=== PATIENT | male | born 1945 | race Caucasian/White ===

== ENCOUNTER 2017-05-06 20:58 | Inpatient (IN) | payer OTHER, MEDICAID ==
[~2017-05-06] VITALS: Ht 175.3 cm; Wt 65.8 kg
[2017-05-06 21:51] LABS: BASOPHIL % 0.4 % (0-2); PLATELET COUNT 284 x10^3mcL (130-400)
[2017-05-06 22:01] LABS: CALCIUM 8.5 mg/dL (8.5-10.1); CARBON DIOXIDE 28.8 mmol/L (21-32); CHLORIDE SERUM 106 mmol/L (98-107); GFR1 > 60 mL/min; GLUCOSE SERUM 101 mg/dL (74-106); POTASSIUM SERUM 3.9 mmol/L (3.5-5.1); SODIUM SERUM 137 mmol/L (136-145)
[2017-05-06 22:05] LABS: ALKALINE PHOSPHATASE 118 U/L (46-116); ALT/SGPT 16 U/L (16-63); AST/SGOT 12 U/L (15-37); BILIRUBIN TOTAL 0.2 mg/dL (0.20-1.00); TOTAL PROTEIN, SERUM 7.2 g/dL (6.4-8.2)
[2017-05-06 22:07] LABS: ALBUMIN 3.1 g/dL (3.4-5.0)
[2017-05-06 22:21] LABS: UA SPECIFIC GRAVITY 1.015 (1.005-1.035); microscopic required? YES; urine erythrocyte TRACE (NEGATIVE)
[2017-05-07 00:20] VITALS: BP 146/81
[2017-05-07 05:48] VITALS: BP 126/79
[2017-05-07 07:38] LABS: T3 TOTAL 1.5 ng/mL
[2017-05-07 08:00] VITALS: BP 124/63
[2017-05-07 08:07] LABS: PHOSPHOROUS 3.7 mg/dL (2.5-4.9)
[2017-05-07 08:16] LABS: FREE T4 1.22 ng/dL (0.76-1.46); T4(THYROXINE) 10.3 ug/dL (4.7-13.3)
[2017-05-07 08:37] LABS: CHOLESTEROL/HDL RATIO 6.3
[2017-05-07 12:50] VITALS: BP 123/83
[2017-05-07 17:53] VITALS: BP 129/90
[2017-05-07 21:44] VITALS: BP 136/67
[2017-05-08 06:15] VITALS: BP 159/89
[2017-05-08 06:18] LABS: CALCIUM 8.3 mg/dL (8.5-10.1); CARBON DIOXIDE 22.8 mmol/L (21-32); CHLORIDE SERUM 110 mmol/L (98-107); CREATININE SERUM 0.8 mg/dL (0.7-1.3); GFR1 > 60 mL/min; GLUCOSE SERUM 95 mg/dL (74-106); MAGNESIUM 2.1 mg/dL (1.8-2.4); PHOSPHOROUS 3.1 mg/dL (2.5-4.9); SODIUM SERUM 139 mmol/L (136-145)
[2017-05-08 06:39] LABS: BASOPHIL % 0.5 % (0-2); PLATELET COUNT 266 x10^3mcL (130-400)
[2017-05-08 06:40] LABS: RED CELL DISTRIBUTION WIDTH 15.8 % (11.5-14.5)
[2017-05-08 08:30] VITALS: BP 128/81
[2017-05-08 12:27] VITALS: BP 126/62
[2017-05-08 16:50] VITALS: BP 149/74
[2017-05-08 21:13] VITALS: BP 148/78
[2017-05-09 05:23] VITALS: BP 130/70
[2017-05-09 10:13] VITALS: BP 135/74
[2017-05-09 13:41] VITALS: BP 135/70
[2017-05-09 14:58] VITALS: BP 135/70
[2017-05-09] MEDS ORDERED: BD LACTINEX1.4 MG PO (16:20)
[2017-05-09] MEDS ORDERED: LEVAQUIN750 MG PO (16:20)
== END 2017-05-09 16:45 | disposition home or self-care (01) | DRG 690 ==
LOC: ED 20:58 → DU 23:21 → MU 23:21 → DU 05-07 00:26 → MU 05-09 09:49
PROVIDERS: Emergency Medicine; Family Medicine; ADMIT Family Medicine
DX: N39.0 Urinary tract infection, site not specified (principal); E44.0 Moderate protein-calorie malnutrition; B96.1 Klebsiella pneumoniae [K. pneumoniae] as the cause of diseases classified elsewhere; E78.5 Hyperlipidemia, unspecified; E03.9 Hypothyroidism, unspecified; G80.9 Cerebral palsy, unspecified; Z87.820 Personal history of traumatic brain injury; Z16.11 Resistance to penicillins; Z68.21 Body mass index [BMI] 21.0-21.9, adult
CPT/HCPCS: 83880; 84439; 92610-GN; J0696; J7030; Q0092

== ENCOUNTER 2017-11-15 09:29 | Emergency (ER) | payer OTHER, MEDICAID ==
[~2017-11-15] VITALS: Ht 175.3 cm; Wt 66.7 kg
[~2017-11-15 09:29] MED LIST: BD LACTINEX1.4 MG PO; LEVAQUIN750 MG PO
[2017-11-15 09:50] VITALS: BP 137/75; Ht 175.3 cm; Wt 66.7 kg
[2017-11-15 11:31] LABS: UA SPECIFIC GRAVITY 1.015 (1.005-1.035); microscopic required? YES; urine erythrocyte TRACE (NEGATIVE)
== END 2017-11-15 11:02 | disposition home or self-care (01) ==
LOC: ED 09:29
PROVIDERS: Specialist
DX: N39.0 Urinary tract infection, site not specified (principal)

== ENCOUNTER 2018-01-22 11:01 | Emergency (ER) | payer OTHER, MEDICAID ==
[~2018-01-22] VITALS: Ht 175.3 cm; Wt 65.8 kg
[2018-01-22 11:10] VITALS: Ht 175.3 cm; Wt 65.8 kg
[2018-01-22 12:52] VITALS: BP 146/74
== END 2018-01-22 12:52 | disposition home or self-care (01) ==
LOC: ED 11:01
DX: N39.0 Urinary tract infection, site not specified (principal)

== ENCOUNTER 2019-04-04 08:43 | Emergency (ER) | payer OTHER, MEDICAID ==
[~2019-04-04] VITALS: Ht 172.7 cm; Wt 66.7 kg
[2019-04-04 08:58] VITALS: Ht 172.7 cm; Wt 66.7 kg
[2019-04-04 09:38] LABS: BASOPHIL % 0.3 % (0-2); PLATELET COUNT 256 x10^3mcL (130-400)
[2019-04-04 09:40] LABS: RED CELL DISTRIBUTION WIDTH 15.1 % (11.5-14.5)
[2019-04-04 09:48] LABS: CALCIUM 9.3 mg/dL (8.5-10.1); CARBON DIOXIDE 27.1 mmol/L (21-32); CHLORIDE SERUM 106 mmol/L (98-107); CREATININE SERUM 1.1 mg/dL (0.7-1.3); GLUCOSE SERUM 81 mg/dL (74-106); POTASSIUM SERUM 4.1 mmol/L (3.5-5.1); SODIUM SERUM 141 mmol/L (136-145)
[2019-04-04 09:49] LABS: UA SPECIFIC GRAVITY 1.015 (1.005-1.035); microscopic required? YES; urine erythrocyte 1+ (NEGATIVE)
[2019-04-04 09:53] LABS: ALBUMIN 3.4 g/dL (3.4-5.0); ALKALINE PHOSPHATASE 114 U/L (46-116); ALT/SGPT 17 U/L (16-63); AST/SGOT 7 U/L (15-37); BILIRUBIN TOTAL 0.32 mg/dL (0.20-1.00); TOTAL PROTEIN, SERUM 7.7 g/dL (6.4-8.2)
[2019-04-04 11:23] VITALS: BP 133/80
== END 2019-04-04 11:23 | disposition home or self-care (01) ==
LOC: ED 08:43
PROVIDERS: Emergency Medicine
DX: N39.0 Urinary tract infection, site not specified (principal)
CPT/HCPCS: J0696; J7030; J7060

== ENCOUNTER 2019-09-01 10:41 | Emergency (ER) | payer OTHER, MEDICAID ==
[~2019-09-01] VITALS: Ht 175.3 cm; Wt 66.7 kg
[2019-09-01 10:47] VITALS: Ht 175.3 cm; Wt 66.7 kg
[2019-09-01 11:38] VITALS: BP 136/78
== END 2019-09-01 11:38 | disposition home or self-care (01) ==
LOC: ED 10:41
DX: N39.0 Urinary tract infection, site not specified (principal)

== ENCOUNTER 2019-10-28 09:38 | Emergency (ER) | payer OTHER, MEDICAID ==
[~2019-10-28] VITALS: Ht 172.7 cm; Wt 66.7 kg
[2019-10-28 09:50] VITALS: Ht 172.7 cm; Wt 66.7 kg
[2019-10-28 12:28] VITALS: BP 128/60
== END 2019-10-28 12:28 | disposition home or self-care (01) ==
LOC: ED 09:38
DX: J40 Bronchitis, not specified as acute or chronic (principal)
CPT/HCPCS: Q0092

== ENCOUNTER 2020-11-21 15:10 | Emergency (ER) | payer OTHER, MEDICAID ==
[~2020-11-21] VITALS: Ht 172.7 cm; Wt 59.9 kg
[2020-11-21 15:20] VITALS: Ht 172.7 cm; Wt 59.9 kg
[2020-11-21 16:22] LABS: UA SPECIFIC GRAVITY >=1.030 (1.005-1.035); microscopic required? YES; urine erythrocyte 3+ (NEGATIVE)
[2020-11-21 16:45] LABS: BASOPHIL % 0.7 % (0.2-1.5); PLATELET COUNT 361 x10^3mcL (152-348); RED CELL DISTRIBUTION WIDTH 14.6 % (12.1-16.2)
[2020-11-21 16:46] LABS: CALCIUM 8.9 mg/dL (8.5-10.1); CARBON DIOXIDE 25.7 mmol/L (21-32); CHLORIDE SERUM 106 mmol/L (98-107); CREATININE SERUM 1.2 mg/dL (0.7-1.3); GLUCOSE SERUM 127 mg/dL (74-106); POTASSIUM SERUM 3.7 mmol/L (3.5-5.1); SODIUM SERUM 139 mmol/L (136-145)
[2020-11-21 16:50] LABS: ALKALINE PHOSPHATASE 83 U/L (46-116); ALT/SGPT 14 U/L (16-63); AST/SGOT 12 U/L (15-37); BILIRUBIN TOTAL 0.1 mg/dL (0.20-1.00); LIPASE 179 IU/L (73-393); TOTAL PROTEIN, SERUM 6.3 g/dL (6.4-8.2)
[2020-11-21 16:52] LABS: ALBUMIN 2.7 g/dL (3.4-5.0)
[2020-11-21] MEDS ORDERED: MACRODANTIN100 M1 PO (17:46)
[2020-11-21] MEDS ORDERED: ONDANSETRON4 M3 PO (17:47)
[2020-11-21 18:22] VITALS: BP 132/65
== END 2020-11-21 18:22 | disposition home or self-care (01) ==
LOC: ED 15:10
PROVIDERS: Student in an Organized Health Care Education/Training Program
DX: N39.0 Urinary tract infection, site not specified (principal); R11.10 Vomiting, unspecified